=== PATIENT | male | born 1970 | race Caucasian/White ===

== ENCOUNTER 2018-01-28 14:00 | Emergency (ER) | payer SELFPAY ==
[2018-01-28 14:34] VITALS: BP 111/63
[2018-01-28] MEDS ORDERED: ONDANSETRON HCL INJ/PF 4 MG/2 ML SDV IV ONE (14:49)
[2018-01-28] MEDS ORDERED: FAMOTIDINE INJ/PF 20 MG/2 ML SDV IV ONE (14:49)
--- NOTE | 2018-01-28 14:52 | ER Document Report ---
ED GI/ - General Chief Complaint: Nausea/Vomiting Stated Complaint: VOMITING Time Seen by Provider: 01/28/18 14:48 Notes: 47-year-old male to the emergency department chief complaint of nausea and vomiting. Denies any chest pain or shortness of breath. Denies any fever, chills, sweats. States he cannot keep anything down. Significant exposure to contaminated water for the 13. Was drinking bottled water. Denies any diarrhea or abdominal pain. Patient states that he does not have a doctor. Does not take any medications. If he gets sick he comes to the ER. TRAVEL OUTSIDE OF THE [place] IN LAST 30 DAYS: No - HPI Patient complains to provider of: Vomiting Onset: Yesterday Timing/Duration: Gradual, Worse Quality of pain: No pain - Related Data Allergies/Adverse Reactions: codeine Allergy (Verified 01/28/18 14:02) Past Medical History - Social History Smoking Status: Current Every Day Smoker Chew tobacco use (# tins/day): No Drug Abuse: None Lives with: Family Family History: Reviewed & Not Pertinent Patient has suicidal ideation: No Patient has homicidal ideation: No Pulmonary Medical History: Reports: Hx Bronchitis Renal/ Medical History: Denies: Hx Peritoneal Dialysis Review of Systems - Review of Systems Notes: Constitutional: denies: Chills, Diaphoresis, Fever, Malaise, Weakness EENT: denies: Eye discharge, Blurred vision, Tearing, Double vision, Nose congestion, Nose discharge, Throat swelling, Mouth pain Cardiovascular: denies: Palpitations, Heart racing, Orthopnea, Dyspnea, Chest pain Respiratory: denies: Hurts to breathe, Wheezing, Shortness of breath. Does have a chronic cough since Gastrointestinal: denies: Abdominal pain, Diarrhea, Black stools, bright red blood in stool. Does complain of nausea and vomiting Genitourinary: denies: Burning, Dysuria, Discharge, Frequency, Flank pain, Hematuria Musculoskeletal: denies: Joint pain, Joint swelling, Muscle pain, Muscle stiffness, back pain Hematologic/Lymphatic: denies: Anemia, Easy bleeding, Easy bruising, Blood clots Neurological/Psychological: denies: Confusion, Dementia, Depression, Loss of consciousness Skin: No lesions, no masses, no skin breakdown, no abscesses Physical Exam - Vital signs Vitals: Temp Pulse Resp BP Pulse Ox 98.3 F 59 L 16 111/63 99 09/22/18 14:32 01/28/18 14:32 01/28/18 14:32 01/28/18 14:32 01/28/18 14:32 Interpretation: Normal - General General appearance: Appears well, Alert - HEENT Head: Normocephalic, Atraumatic Eyes: Normal Pupils: PERRL - Respiratory Respiratory status: No respiratory distress Chest status: Nontender Breath sounds: Normal Chest palpation: Normal - Cardiovascular Rhythm: Regular Heart sounds: Normal auscultation Murmur: No - Abdominal Inspection: Normal Distension: No distension Bowel sounds: Normal Tenderness: Nontender Organomegaly: No organomegaly - Back Back: Normal, Nontender - Extremities General upper extremity: Normal inspection, Nontender, Normal color, Normal ROM , Normal temperature General lower extremity: Normal inspection, Nontender, Normal color, Normal ROM , Normal temperature, Normal weight bearing. No: Jaycee's sign - Neurological Neuro grossly intact: Yes Cognition: Normal Orientation: AAOx4 Foreman Coma Scale Eye Opening: Spontaneous Foreman Coma Scale Verbal: Oriented Foreman Coma Scale Motor: Obeys Commands Dheeraj Coma Scale Total: 15 Speech: Normal Motor strength normal: LUE, RUE, LLE, RLE Sensory: Normal - Psychological Associated symptoms: Normal affect, Normal mood - Skin Skin Temperature: Warm Skin Moisture: Dry Skin Color: Normal Course - Re-evaluation Re-evalutation: 01/28/18 14:52 Well appearing in no acute distress. Patient stated symptoms are worse in his physical exam. We will get basic labs to reassure us that there is nothing bad. Due to the fact that he is almost 48 and he is a smoker we will get a EKG and her troponin to rule out cardiac pathology with his nausea vomiting. Will give some Zofran and some fluids and Pepcid and reassess. 01/28/18 16:12 Nurses tried several times to get labs on him. Were unable to get labs. Patient now refusing to let anybody else tried to get blood from him. Unable to get an IV. 01/28/18 16:40 Unable to find patient at this time. Informed by the nurses that he cussed out the nurse and said he was leaving. Eloped. - Vital Signs Vital signs: Temp Pulse Resp BP Pulse Ox 98.3 F 59 L 16 111/63 99 01/28/18 14:32 01/28/18 14:32 01/28/18 14:32 01/28/18 14:01/28/18 14:32 Discharge - Discharge Clinical Impression: Vomiting Qualifiers: Vomiting type: unspecified Vomiting Intractability: non-intractable Nausea presence: with nausea Qualified Code(s): R11.2 - Nausea with vomiting, unspecified
[2018-01-28] MEDS ORDERED: ONDANSETRON 4 MG TAB.RAPDIS ONE (15:53)
[2018-01-28 16:43] LABS: APPEARANCE,URINE CLEAR; BILIRUBIN,URINE NEGATIVE (NEGATIVE); COLOR,URINE YELLOW; GLUCOSE, URINE NEGATIVE (NEGATIVE); KETONES,URINE 20 mg/dL (NEGATIVE); LEUKOCYTE ESTERASE,URINE NEGATIVE (NEGATIVE); NITRITE,URINE NEGATIVE (NEGATIVE); PROTEIN,URINE NEGATIVE (NEGATIVE); URINE SPECIFIC GRAVITY 1.024
== END 2018-01-28 16:46 | disposition left against medical advice (07) ==
LOC: ER 14:00
DX: R11.2 Nausea with vomiting, unspecified (principal); F17.200 Nicotine dependence, unspecified, uncomplicated
CPT/HCPCS: 99281; 36415; 81001; S0119; J2405; S0028